=== PATIENT | female | born 1950 | race Caucasian/White ===

== ENCOUNTER 2019-01-04 09:55 | Day surgery (SDC) | payer MEDICARE, OTHER ==
[~2019-01-04] VITALS: Ht 160 cm; Wt 80.0 kg
[~2019-01-04 09:55] MED LIST: ATOR20 PO; Aspir 8181 MG PO; CLOP75 PO; CONEST.625 PO; COQ-10100 MG PO; HYDACE5 PO; IBUP800 PO; Isosorbide Mono30 MG PO; LISI5 PO; MELA3 PO; METO25 PO; NITR.4SL SL; Nitro-Dur1 EACH TOP; Norco 5-325 Ta1 EACH PO; OXYACE5T PO; PANT40 PO; Valium5 MG PO; ZOLP5 PO
[2019-01-04] MEDS ORDERED: ZOLP10 (11:22)
--- NOTE | 2019-01-04 11:53 | NUR ---
Pt anxious requested sedative. Dr. Rausch consulted orders received. Pt given 1 mg of ativan 1v, vs stable pt is on sp02 monitor.
--- NOTE | 2019-01-04 17:05 | NUR ---
ASSUMED CARE OF PT. PT IS DROWSY, BUT ORIENTED AND COOPERTIVE. PT DENIES CHEST PAIN/PRESSURE, SOB OR NAUSEA. PT REPORTS MIN DISCOMFORT AT L RADIAL SITE, 3/10, AHCEY IN CHARACTER. MONITOR SR 60'S, B/P 101/58, SPO2 94% RA. L RADIAL SITE SOFT, NO SWELLING/HEMATOMA, TR BAND IN PLACE.
--- NOTE | 2019-01-04 18:35 | NUR ---
PT AMB TO THE BATHROOM, GAIT STEADY, SITE UNCHANGED. PT DRESSED SELF, SITE UNCHANGED. TR BAND REMOVED, CLOTH DOT AND WRIST IMMOBILIZER PLACED; IV REMOVED-CANNULA INTACT.
--- NOTE | 2019-01-04 18:45 | NUR ---
PT RECEIVED DISCHARGE INSTRUCTIONS, MED LIST AND "AFTER CARE" INSTRUCTIONS; VERBALIZED GOOD UNDERSTANDING. PT LEFT FACILITY VIA W/C, CONDITION STABLE.
== END 2019-01-04 18:45 | disposition home or self-care (01) ==
LOC: MHTC 09:55
PROC: B2111ZZ Fluoroscopy of Multiple Coronary Arteries using Low Osmolar Contrast (ICD-10-PCS; principal; 2019-01-04)
PROC: 4A023N8 Measurement of Cardiac Sampling and Pressure, Bilateral, Percutaneous Approach (ICD-10-PCS; principal; 2019-01-04)
DX: I25.119 Atherosclerotic heart disease of native coronary artery with unspecified angina pectoris (principal); R00.1 Bradycardia, unspecified; E78.5 Hyperlipidemia, unspecified; I25.2 Old myocardial infarction; Z79.82 Long term (current) use of aspirin; Z79.02 Long term (current) use of antithrombotics/antiplatelets; Z79.899 Other long term (current) drug therapy; Z87.891 Personal history of nicotine dependence; Z95.1 Presence of aortocoronary bypass graft
CPT/HCPCS: 76937; 93459; 99152; 99153; C1769; C1894; J1644; J2060; J2250; J3010; J7030; Q9967

== ENCOUNTER → 2021-12-31 | Outpatient (CLI) | payer MEDICARE, OTHER ==
[~2021-12-31] MED LIST changes: +ZOLP10
== END ==
LOC: LAB 08:07 → LAB SHORT 08:07 → PLD 08:07
DX: N95.0 Postmenopausal bleeding (principal); R93.89 Abnormal findings on diagnostic imaging of other specified body structures
CPT/HCPCS: 88305

== ENCOUNTER 2024-04-08 13:09 | Emergency (ER) | payer MEDICARE, OTHER ==
[~2024-04-08] VITALS: Ht 157.5 cm; Wt 72.6 kg
[2024-04-08] MEDS ORDERED: Ketorolac Tromethamine 30mg Vial IV ONE (14:10)
[2024-04-08 17:25] VITALS: BP 167/79
== END 2024-04-08 17:30 | disposition home or self-care (01) ==
LOC: ER 13:09
DX: S70.02XA Contusion of left hip, initial encounter (principal); W18.30XA Fall on same level, unspecified, initial encounter; Z79.02 Long term (current) use of antithrombotics/antiplatelets; Z79.899 Other long term (current) drug therapy
CPT/HCPCS: 73502; 96374; 99283-25; J1885